=== PATIENT | female | born 1955 | race Caucasian/White ===

== ENCOUNTER 2017-04-29 21:02 | Emergency (ER) | payer MEDICARE, BC ==
[~2017-04-29] VITALS: Ht 162.6 cm; Wt 72.6 kg
--- NOTE | 2017-04-29 21:23 | PHYS DOC ---
Past Medical History Additional Past Medical Histor: seizures; aneurysm; blind Additional Past Surgical Histo: V-P shunt 2000; Cerebral aneursyn with clipping (NO MRI) 1985; Coil 2006 Additional Information: non smoker Social History Narrative: Sister is family day carer Adult General Chief Complaint Chief Complaint: SEIZURE HPI HPI Patient is a 61 year old female who presents with recurrent seizure. She is followed extensively at which is followed by their neurology department for chronic seizures. 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 She's had clippings performed, coiling and a shunt placed. This seizure started at 2007 PM. They were just recently given rectal Valium to use for the first time they did dose at home 2021 PM. She starts with a partial motor seizure involving the left upper extremity which was consistent with a seizure tonight. The rectal Valium aborted the seizure and did not progress into a grand mal. The brought her in by private vehicle. The family states she's been slightly sluggish all day. No known fever. No cough or cold symptoms. She has a baseline confusion with no short- term memory. She is on Keppra and Dilantin. Review of Systems Review of Systems Constitutional: Denies fever or chills Eyes: Denies change in visual acuity, redness, or eye pain HENT: Denies nasal congestion or sore throat Respiratory: Denies cough or shortness of breath Cardiovascular: No chest pain, no SOA. GI: Denies abdominal pain, nausea, vomiting, bloody stools or diarrhea : Denies dysuria or hematuria Musculoskeletal: Denies back pain or joint pain Integument: Denies rash or skin lesions NEURO: seizure noted Current Medications Current Medications Current Medications Medications (Trade) Dose Ordered Sig/Mayte Start Time Stop Time Status Last Admin Dose Admin Ondansetron HCl (Zofran) 4 mg 1X ONCE 04/29/17 22:15 04/29/17 22:16 DC Allergies Allergies Allergies Coded Allergies Type Severity Reaction Last Updated Verified No Known Drug Allergies 04/29/17 No Physical Exam Physical Exam Constitutional: Well developed, well nourished, no acute distress, non-toxic appearance. HENT: Normocephalic, atraumatic, bilateral external ears normal, oropharynx moist, no oral exudates, nose normal. Eyes: PERRLA, EOMI, conjunctiva normal, no discharge. Neck: Normal range of motion, no tenderness, supple, no stridor. Cardiovascular:Heart rate regular rhythm, no murmur Lungs & Thorax: Bilateral breath sounds clear to auscultation Abdomen: Bowel sounds normal, soft, no tenderness, no masses, no pulsatile masses. Skin: Warm, dry, no erythema, no rash. Back: No tenderness, no CVA tenderness. Extremities: No tenderness, no cyanosis, no clubbing, ROM intact, no edema. Neurologic: Alert and oriented X 2, normal motor function, normal sensory function, no focal deficits noted. Current Patient Data Vital Signs Vital Signs Date Time Temp Pulse Resp B/P (MAP) Pulse Ox O2 Delivery O2 Flow Rate FiO2 04/29/17 21:10 99.1 84 16 132/72 (92) 94 Room Air 99.1 Lab Values Laboratory Tests Test 04/29/17 21:22 04/29/17 21:25 Glucose (Fingerstick) 107 mg/dL (70-99) H White Blood Count 5.3 x10^3/uL (4.0-11.0) Red Blood Count 3.97 x10^6/uL (3.50-5.40) Hemoglobin 12.3 g/dL (12.0-15.5) Hematocrit 37.0 % (36.0-47.0) Mean Corpuscular Volume 93 fL (79-100) Mean Corpuscular Hemoglobin 31 pg (25-35) Mean Corpuscular Hemoglobin Concent 33 g/dL (31-37) Red Cell Distribution Width 12.7 % (11.5-14.5) Platelet Count 185 x10^3/uL (140-400) Neutrophils (%) (Auto) 49 % (31-73) Lymphocytes (%) (Auto) 37 % (24-48) Monocytes (%) (Auto) 11 % (0-9) H Eosinophils (%) (Auto) 1 % (0-3) Basophils (%) (Auto) 1 % (0-3) Neutrophils # (Auto) 2.6 x10^3uL (1.8-7.7) Lymphocytes # (Auto) 2.0 x10^3/uL (1.0-4.8) Monocytes # (Auto) 0.6 x10^3/uL (0.0-1.1) Eosinophils # (Auto) 0.1 x10^3/uL (0.0-0.7) Basophils # (Auto) 0.1 x10^3/uL (0.0-0.2) Prothrombin Time 12.8 SEC (11.7-14.0) Prothrombin Time INR 1.0 (0.8-1.1) PTT 23 SEC (24-38) L Sodium Level 141 mmol/L (136-145) Potassium Level 3.8 mmol/L (3.5-5.1) Chloride Level 105 mmol/L (98-107) Carbon Dioxide Level 27 mmol/L (21-32) Anion Gap 9 (6-14) Blood Urea Nitrogen 15 mg/dL (7-20) Creatinine 0.9 mg/dL (0.6-1.0) Estimated GFR (Cockcroft-Gault) 63.9 BUN/Creatinine Ratio 17 (6-20) Glucose Level 116 mg/dL (70-99) H Calcium Level 9.0 mg/dL (8.5-10.1) Total Bilirubin 0.2 mg/dL (0.2-1.0) Aspartate Amino Transferase (AST) 18 U/L (15-37) Alanine Aminotransferase (ALT) 22 U/L (14-59) Alkaline Phosphatase 150 U/L (46-116) H Total Protein 7.6 g/dL (6.4-8.2) Albumin 3.5 g/dL (3.4-5.0) Albumin/Globulin Ratio 0.9 (1.0-1.7) L Phenytoin (Dilantin) Level 21.2 mcg/mL (10.0-20.0) H Phenytoin Last Dose Date Phenytoin Last Dose Time Laboratory Tests 04/29/17 21:25 Laboratory Tests 04/29/17 21:25 EKG EKG EKG interpreted by myself at 2121 PM: NSR, rate 87, leftward axis; no acute ST elevation. Radiology/Procedures Radiology/Procedures CT head reviewed by myself at 2150 PM; no bleed or shift. Awaiting final report. [address] [place] [address] IMAGING REPORT Signed PATIENT: ANGEL RIOS ACCOUNT: [id number] : 1955 LOCATION: ER AGE: 61 SEX: F EXAM STATUS: PRE ER ORD. PHYSICIAN: LIU DAVID MD REASON: seizure; prior seizure disorder and aneurysm w clipping PROCEDURE: CT HEAD WO CONTRAST CT scan of the head without contrast 04/29/2017 Clinical History: History of seizure. Technique: Unenhanced, contiguous, 5 mm axial sections were obtained through the head. One or more of the following individualized dose reduction techniques were utilized for this study: 1. Automated exposure control. 2. Adjustment of the mA and/or kV according to patient size. 3. Use of iterative reconstruction technique. FINDINGS: No previous studies are available for comparison. The patient is post bifrontal temporal craniotomy. Aneurysm clips are seen in the region of the suprasellar cistern. A left frontal ventriculostomy tube extends to the frontal horn of the right lateral ventricle. There is generalized parenchymal atrophy. The lateral ventricles and third ventricle are slightly prominent. It is difficult to exclude shunt malfunction without previous imaging for comparison. Areas of encephalomalacia are seen involving the right temporal lobe, the right frontal lobe, both medial parietal lobes and the left frontal lobe. No acute parenchymal abnormality is definitely seen. No acute extra-axial fluid collection is noted. No skull fracture is seen. IMPRESSION: No acute intracranial abnormality is definitely seen. Electronically signed by: Alonso Mathews MD (04/29/2017 9:58 PM) [facility] DICTATED and SIGNED BY: ALONSO MATHEWS MD DATE: 04/29/172153 CC: LIU DAVID MD ~ Course & Med Decision Making Course & Med Decision Making Evaluated patient upon arrival. She is appropriately post ictal per the family. Proceeding with evaluation. 2235 PM: CT results back with no acute findings. Dilantin level slightly elevated 21.2. At 2250 PM: Reviewed all the findings extensively with the family. Spent a significant amount time at the bedside. Reviewed all the options. They DECLINE ADMISSION here for personal reasons. I then offered to call to transfer center to arrange for a transfer to . They DECLINED TRANSFER as well. They live with her and feel very comfortable managing her seizures. There are taking her home tonight. They have a repeat dose of Valium rectally they can dose tonight if she has recurrent seizure. However I did tell her that if she has a second seizure she would need to be hospitalized they decided that they would just take her personally to at that time. Her Dilantin level is slightly elevated tonight. They are to hold the evening dose of Dilantin. They are to call their neurologist in the morning prior to giving the morning dose. Again offered admission here and transfer to but they declined all those options. They're taking the patient home. I will note that the patient has been alert and cooperative here she has had some nausea Zofran was dosed. She is at her baseline neurologic status presently. SHE HAD NO SEIZURE HERE. I have spoken with the patient and/or caregivers. I have explained the patient' s condition, diagnosis and treatment plan based on the information available to me at this time. I have answered the patient's and/or caregiver's questions and addressed any concerns. The patient and/or caregivers have as good an understanding of the patient's diagnosis, condition and treatment plan as can be expected at this point. The patient's condition is stable and appropriate for discharge from the emergency department. The patient will pursue further outpatient evaluation with the primary care physician or other designated or consulting physician as outlined in the discharge instructions. The patient and/or caregivers are agreeable to this plan of care and follow-up instructions have been explained in detail. The patient and/or caregivers have received these instructions in written format and have expressed an understanding of the discharge instructions. The patient and/or caregivers are aware that any significant change in condition or worsening of symptoms should prompt an immediate return to this or the closest emergency department or a call to 911. Dragon Disclaimer Dragon Disclaimer This electronic medical record was generated, in whole or in part, using a voice recognition dictation system. Departure Departure Impression: Primary Impression: Recurrent seizures Additional Impression: Elevated Dilantin level Disposition: 01 HOME, SELF-CARE Condition: STABLE Patient Instructions: Seizure, Adult Additional Instructions: Your Dilantin level was 21.2 here. Holds her evening dose tonight. Call the neurologist in the morning prior to giving the morning dose for instructions. The Keppra level is pending. CAT scan of the head showed no acute change. Problem Qualifiers LIU DAVID MD Apr 29, 2017 21:23
[2017-04-29 21:40] LABS: BASO # 0.1 x10^3/uL (0.0-0.2); BASO % 1 % (0-3); EOS % 1 % (0-3); HEMOGLOBIN 12.3 g/dL (12.0-15.5); LYMPH % 37 % (24-48); MEAN CORPUSCULAR HEMOGLOBIN 31 pg (25-35); MEAN CORPUSCULAR HGB CONC 33 g/dL (31-37); MEAN CORPUSCULAR VOLUME 93 fL (79-100); MONO % 11 % (0-9); NEUT % 49 % (31-73); PLATELET COUNT 185 x10^3/uL (140-400); RED BLOOD COUNT 3.97 x10^6/uL (3.50-5.40); RED CELL DISTRIBUTION WIDTH 12.7 % (11.5-14.5); WHITE BLOOD COUNT 5.3 x10^3/uL (4.0-11.0)
[2017-04-29 21:51] LABS: PROTHROMBIN TIME PATIENT 12.8 SEC (11.7-14.0)
[2017-04-29] MEDS ORDERED: BUSP5TAB PO (21:54)
[2017-04-29] MEDS ORDERED: LEVO50TA5 PO (21:55)
[2017-04-29] MEDS ORDERED: LEVE100020 PO (21:55)
[2017-04-29] MEDS ORDERED: OMEP20TA8 PO (21:55)
[2017-04-29] MEDS ORDERED: LISI2.5T PO (21:56)
[2017-04-29] MEDS ORDERED: CITA20TA5 PO (21:56)
[2017-04-29] MEDS ORDERED: ALEN70TA3 PO (21:56)
[2017-04-29] MEDS ORDERED: CALC-450 PO (21:57)
[2017-04-29] MEDS ORDERED: POLY255P PO (21:57)
[2017-04-29] MEDS ORDERED: MULT1TAB52 PO (21:57)
[2017-04-29] MEDS ORDERED: PHEN100C PO (21:58)
[2017-04-29] MEDS ORDERED: SIMV40TA3 PO (21:58)
[2017-04-29] MEDS ORDERED: ASPI-482 PO (21:59)
[2017-04-29] MEDS ORDERED: CETI10TA22 PO (21:59)
[2017-04-29] MEDS ORDERED: DIAZEPAM10 MG PR (22:00)
[2017-04-29 22:01] LABS: ANION GAP 9 (6-14); BLOOD UREA NITROGEN 15 mg/dL (7-20); BUN/CREATININE RATIO 17 (6-20); CARBON DIOXIDE 27 mmol/L (21-32); CHLORIDE 105 mmol/L (98-107); CREATININE 0.9 mg/dL (0.6-1.0); GFR 63.9; GLUCOSE 116 mg/dL (70-99); POTASSIUM 3.8 mmol/L (3.5-5.1); SODIUM 141 mmol/L (136-145)
--- NOTE | 2017-04-29 22:03 | RAD ---
CT scan of the head without contrast 04/29/2017 Clinical History: History of seizure. Technique: Unenhanced, contiguous, 5 mm axial sections were obtained through the head. One or more of the following individualized dose reduction techniques were utilized for this study: 1. Automated exposure control. 2. Adjustment of the mA and/or kV according to patient size. 3. Use of iterative reconstruction technique. FINDINGS: No previous studies are available for comparison. The patient is post bifrontal temporal craniotomy. Aneurysm clips are seen in the region of the suprasellar cistern. A left frontal ventriculostomy tube extends to the frontal horn of the right lateral ventricle. There is generalized parenchymal atrophy. The lateral ventricles and third ventricle are slightly prominent. It is difficult to exclude shunt malfunction without previous imaging for comparison. Areas of encephalomalacia are seen involving the right temporal lobe, the right frontal lobe, both medial parietal lobes and the left frontal lobe. No acute parenchymal abnormality is definitely seen. No acute extra-axial fluid collection is noted. No skull fracture is seen. IMPRESSION: No acute intracranial abnormality is definitely seen. Electronically signed by: Alonso Gonzalez MD (04/29/2017 9:58 PM) [facility]
[2017-04-29 22:07] LABS: ALBUMIN 3.5 g/dL (3.4-5.0); ALBUMIN/GLOBULIN RATIO 0.9 (1.0-1.7); ALK PHOS 150 U/L (46-116); ALT (SGPT) 22 U/L (14-59); AST (SGOT) 18 U/L (15-37); TOTAL BILIRUBIN 0.2 mg/dL (0.2-1.0); TOTAL PROTEIN 7.6 g/dL (6.4-8.2)
[2017-04-29] MEDS ORDERED: ONDANSETRON PF 4 MG/2 ML VIAL. IV ONE ×2 (22:15→23:15)
[2017-04-29 23:50] VITALS: BP 145/70
--- NOTE | 2017-04-30 07:17 | EKG ---
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
== END 2017-04-29 23:50 | disposition home or self-care (01) ==
LOC: ER 21:02
DX: R56.9 Unspecified convulsions (principal); R78.89 Finding of other specified substances, not normally found in blood
CPT/HCPCS: 36415; 70450; 80053; 80185; 82962; 85025; 85610; 85730; 93005; 96374; 96376; 99285; J2405

== ENCOUNTER 2019-12-28 00:14 | Emergency (ER) | payer MEDICARE, BC ==
[~2019-12-28 00:14] MED LIST: ALEN70TA3 PO; ASPI-482 PO; BUSP5TAB PO; CALC-450 PO; CETI10TA24 PO; CITA20TA6 PO; DIAZEPAM10 MG PR; LEVE100020 PO; LEVO50TA5 PO; LISI2.5T PO; MULT-445 PO; OMEP20TA8 PO; PHEN100C PO; POLY255P11 PO; SIMV40TA18 PO
--- NOTE | 2019-12-28 00:19 | PHYS DOC ---
Past Medical History Past Medical History: Anxiety, Constipation, Depression, GERD, Hypertension, Hypothyroid, MRSA, UTI Additional Past Medical Histor: seizures; aneurysm; blind Additional Past Surgical Histo: V-P shunt 2000; Cerebral aneursyn with clipping (NO MRI) 1985; Coil 2006 Smoking Status: Never Smoker Alcohol Use: None Drug Use: None General Adult EDM: Chief Complaint: HEADACHE HPI: HPI: Patient is set to go to the [facility]. I did not see this patient in the ER. Review of Systems: Review of Systems: Constitutional: Denies fever or chills. [] Eyes: Denies change in visual acuity. [] HENT: Denies nasal congestion or sore throat. [] Respiratory: Denies cough or shortness of breath. [] Cardiovascular: Denies chest pain or edema. [] GI: Denies abdominal pain, nausea, vomiting, bloody stools or diarrhea. [] : Denies dysuria. [] Musculoskeletal: Denies back pain or joint pain. [] Integument: Denies rash. [] Neurologic: Denies headache, focal weakness or sensory changes. [] Endocrine: Denies polyuria or polydipsia. [] Lymphatic: Denies swollen glands. [] Psychiatric: Denies depression or anxiety. [] Heart Score: Risk Factors: Risk Factors: DM, Current or recent (<one month) smoker, HTN, HLP, family history of CAD, obesity. Risk Scores: Score 0 - 3: 2.5% MACE over next 6 weeks - Discharge Home Score 4 - 6: 20.3% MACE over next 6 weeks - Admit for Clinical Observation Score 7 - 10: 72.7% MACE over next 6 weeks - Early Invasive Strategies Allergies: Allergies: Allergies Coded Allergies Type Severity Reaction Last Updated Verified No Known Drug Allergies 04/29/17 No Physical Exam: PE: Constitutional: Well developed, well nourished, no acute distress, non-toxic appearance. [] HENT: Normocephalic, atraumatic, bilateral external ears normal, oropharynx moist, no oral exudates, nose normal. [] Eyes: PERRLA, EOMI, conjunctiva normal, no discharge. [] Neck: Normal range of motion, no tenderness, supple, no stridor. [] Cardiovascular:Heart rate regular rhythm, no murmur [] Lungs & Thorax: Bilateral breath sounds clear to auscultation [] Abdomen: Bowel sounds normal, soft, no tenderness, no masses, no pulsatile masses. [] Skin: Warm, dry, no erythema, no rash. [] Back: No tenderness, no CVA tenderness. [] Extremities: No tenderness, no cyanosis, no clubbing, ROM intact, no edema. [] Neurologic: Alert and oriented X 3, normal motor function, normal sensory function, no focal deficits noted. [] Psychologic: Affect normal, judgement normal, mood normal. [] EKG: EKG: [] Radiology/Procedures: Radiology/Procedures: [] Course & Med Decision Making: Course & Med Decision Making Pertinent Labs and Imaging studies reviewed. (See chart for details) [] Dragon Disclaimer: Dragon Disclaimer: This electronic medical record was generated, in whole or in part, using a voice recognition dictation system. Departure Departure Disposition: 01 LEFT WITHOUT BEING SEEN Referrals: MARQUIS MCCLENDON MD (PCP) Justicifation of Admission Dx: Justifications for Admission: Justification of Admission Dx: SOSA Liriano DO Dec 28, 2019 00:19
== END 2019-12-28 00:27 | disposition left against medical advice (07) ==
LOC: ER 00:14
DX: R51 Headache (principal); K21.9 Gastro-esophageal reflux disease without esophagitis; I10 Essential (primary) hypertension; E03.9 Hypothyroidism, unspecified; Z53.21 Procedure and treatment not carried out due to patient leaving prior to being seen by health care provider